=== PATIENT | male | born 1985 | race Caucasian/White ===

== ENCOUNTER 2017-06-17 11:32 | Inpatient (IN) | payer OTHER ==
[2017-06-17 13:58] VITALS: BMI 26.6
--- NOTE | 2017-06-17 16:41 | HP ---
COWS - Scale Resting Pulse: 1= [place] 81-100 Sweatin=Flushed/Facial Moisture Restless Observation: 0= Sits Still Pupil Size: 1= Pupils >than Normal Bone or Joint Aches: 2= Severe Diffuse Aches Runny Nose/ Eye Tearin= Runny Nose/Eyes GI Upset > 30mins: 2= Nausea/Diarrhea (diarrhea x 3) Tremor Observation: 2= Slight Tremor Visible Yawning Observation: 1= 1-2x During Session Anxiety or Irritability: 4=Extreme Anxiety Goose Flesh Skin: 0=Smooth Skin COWS Score: 17 CIWA Score - CIWA Score Nausea/Vomitin Muscle Tremors: 4-Moderate,w/Arms Extend Anxiety: 4-Mod. Anxious/Guarded Agitation: 4-Moderately Restless Paroxysmal Sweats: No Perspiration Orientation: 1-Uncertain about Date Tacttile Disturbances: 0-None Auditory Disturbances: 0-None Visual Disturbances: 0-None Headache: 2-Mild CIWA-Ar Total Score: 18 Admission ROS BHS - HPI Chief Complaint: Opioid and alcohol withdrawal symptoms Allergies/Adverse Reactions: Allergies Allergy/AdvReac Type Severity Reaction Status Date / Time No Known Allergies Allergy Verified 06/17/17 15:42 History of Present Illness: 32 years old male with a long history of alcohol and opioid dependence is seeking admission to detox. Patient has been in previous detox at [place], [place] and this is his first detox at [facility]. He has medical history of depression, nicotine dependence and ADHD. He denies suicide attempt and suicidal ideation at this time. Exam Limitations: No Limitations - Ebola screening Have you traveled outside of the country in the last 21 days: No Have you had contact with anyone from an Ebola affected area: No Have you been sick,other than usual withdrawal symptoms: No Do you have a fever: No - Review of Systems Constitutional: Chills, Loss of Appetite, Malaise, Night Sweats, Changes in sleep, Unexplained wgt Loss (30 lbs weight loss in 3 months) EENT: reports: Nose Congestion Respiratory: reports: No Symptoms reported Cardiac: reports: No Symptoms Reported : reports: No Symptoms Reported Musculoskeletal: reports: Joint Pain, Muscle Pain, Muscle Weakness Integumentary: reports: Flushing Neuro: reports: Tingling, Tremors Endocrine: reports: No Symptoms Reported Hematology: reports: No Symptoms Reported Psychiatric: reports: Agitated, Anxious, Depressed Other Systems: Reviewed and Negative Patient History - Patient Medical History Hx Anemia: No Hx Asthma: No Hx Chronic Obstructive Pulmonary Disease (COPD): No Hx Cardiac Disorders: No Hx Hypertension: No Hx Hypercholesterolemia: No Hx Pacemaker: No HX Cerebrovascular Accident: No Hx Seizures: No Hx Diabetes: No Hx Gastrointestinal Disorders: No Hx Liver Disease: No Hx Genitourinary Disorders: No Hx Sexually Transmitted Disorders: No Hx Renal Disease (ESRD): No Hx Thyroid Disease: No Hx Human Immunodeficiency Virus (HIV): No (Negative October 2015) Hx Hepatitis C: No Hx Depression: Yes (Not on medication) Hx Suicide Attempt: Yes Hx Bipolar Disorder: No Hx Schizophrenia: No Other Medical History: ADHD- Not on medication. was on Retalin - Patient Surgical History Past Surgical History: Yes Other Surgical History: hand surgery to repair tendon on left hand 2007 - PPD History Previous Implant?: Yes Documented Results: Negative w/o proof Implanted On Prior R Admission?: No PPD to be Administered?: Yes - Reproductive History Patient is a Female of Child Bearing Age (11 -55 yrs old): Yes (MALE) - Smoking Cessation Smoking history: Current every day smoker Aproximately how many cigarettes per day: 10 Hx Chewing Tobacco Use: No Initiated information on smoking cessation: Yes 'Breaking Loose' booklet given: 06/17/17 - Substance & Tx. History Hx Alcohol Use: Yes Substance Use Type: Alcohol, Cocaine, Heroin Hx Substance Use Treatment: Yes ([facility] ) - Substances Abused Heroin Route: Injection Frequency: Daily Amount used: 5-6 bags Age of first use: 25 Date of Last Use: 06/15/17 Alcohol Route: Oral Frequency: 3-6 times per week Amount used: 4 of 24 oz beer Age of first use: 17 Date of Last Use: 06/15/17 Marijuana/Hashish Route: Smoking Frequency: 1-3 times last 30 days Amount used: 1 joint Age of first use: 17 Date of Last Use: 05/27/17 Admission Physical Exam BHS - Vital Signs Vital Signs: Vital Signs - 24 hr 06/17/17 13:28 Temperature 96 F L Pulse Rate 93 H Respiratory 20 Rate Blood Pressure 147/77 - Physical General Appearance: Yes: Moderate Distress HEENTM: Yes: EOMI, Normal ENT Inspection, Normal Voice, NOEL Respiratory: Yes: Lungs Clear, Normal Breath Sounds, No Respiratory Distress Neck: Yes: Supple Breast: Yes: Breast Exam Deferred Cardiology: Yes: Regular Rhythm, Regular Rate, Tachycardia Abdominal: Yes: Normal Bowel Sounds, Soft Genitourinary: Yes: Within Normal Limits Back: Yes: Normal Inspection Musculoskeletal: Yes: Within Normal Limits Extremities: Yes: Tremors Neurological: Yes: Alert, Normal Mood/Affect Integumentary: Yes: Warm Lymphatic: Yes: Within Normal Limits - Diagnostic (1) Opioid dependence with withdrawal Current Visit: Yes Status: Chronic (2) Cocaine dependence, uncomplicated Current Visit: Yes Status: Chronic (3) Depression Current Visit: Yes Status: Chronic Qualifiers: Depression Type: unspecified Qualified Code(s): F32.9 - Major depressive disorder, single episode, unspecified (4) Nicotine dependence Current Visit: Yes Status: Chronic Cleared for Admission [facility] - Detox or Rehab [facility] Level of Care: Medically Managed Detox Regimen/Protocol: Methadone/Librium [facility] Breath Alcohol Content Breath Alcohol Content: 0 Urine Drug Screen - Results Drug Screen Negative: No Urine Drug Screen Results: OPI-Opiates
[2017-06-17] MEDS ORDERED: P-EPHED 60MG/TRIPROLIDI 2.5MG TABLET PO PRN (16:51)
[2017-06-17] MEDS ORDERED: MAG HYDROX/AL HYDROX/SIMETH 30 ML UNIT-DOSE CUP PO PRN (16:51)
[2017-06-17] MEDS ORDERED: MAGNESIUM CITRATE 300 ML BOTTLE PO PRN (16:51)
[2017-06-17] MEDS ORDERED: ACETAMINOPHEN 325 MG TABLET (FP) PO PRN (16:51)
[2017-06-17] MEDS ORDERED: MENTHOL/PHENOL 1 EACH UD MM PRN (16:51)
[2017-06-17] MEDS ORDERED: IBUPROFEN 400 MG TABLET (FP) PO PRN (16:51)
[2017-06-17] MEDS ORDERED: guaiFENesin/D-METHORPHAN HB 10 ML UNIT-DOSE CUPS PO PRN (16:51)
[2017-06-17] MEDS ORDERED: MAGNESIUM HYDROX 2400MG/30ML ORAL SUSPENSION 30 ML CUP PO PRN (16:51)
[2017-06-17] MEDS ORDERED: chlordiazePOXIDE HCL 25 MG CAPSULE PO PRN (16:51)
[2017-06-17] MEDS ORDERED: LOPERAMIDE HCL 2 MG CAPSULE PO PRN (16:51)
[2017-06-17] MEDS ORDERED: METHADONE HCL 10 MG TABLET (FOR DETOX USE ONLY) PO ONE ×2 (17:30→23:00)
[2017-06-17] MEDS: NICOTINE POLACRILEX 4 MG GUM BC PRN ×2 (18:41→22:41)
[2017-06-17 21:20] LABS: URINE APPEARANCE CLEAR; URINE BILIRUBIN NEGATIVE (NEGATIVE); URINE BLOOD NEGATIVE (NEGATIVE); URINE COLOR LTYELLOW; URINE GLUCOSE (UA) NEGATIVE (NEGATIVE); URINE KETONE NEGATIVE (NEGATIVE); URINE LEUK ESTERASE NEGATIVE (NEGATIVE); URINE NITRITE NEGATIVE (NEGATIVE); URINE PROTEIN NEGATIVE (NEGATIVE); URINE UROBILINOGEN NEGATIVE mg/dL (0.2-1.0)
[2017-06-17] MEDS: THIAMINE HCL 100 MG TABLET (FP) PO SCH (22:39)
[2017-06-17] MEDS: MELATONIN 5 MG TABLETS PO SCH (22:39)
[2017-06-17] MEDS: chlordiazePOXIDE HCL 25 MG CAPSULE PO SCH (22:39)
[2017-06-18] MEDS: chlordiazePOXIDE HCL 25 MG CAPSULE PO SCH ×4 (05:02→22:10)
[2017-06-18] MEDS: NICOTINE POLACRILEX 4 MG GUM BC PRN ×5 (05:03→20:34)
--- NOTE | 2017-06-18 08:23 | EKG ---
Test Reason : Blood Pressure : / mmHG Vent. Rate : 070 BPM Atrial Rate : 070 BPM P-R Int : 144 ms QRS Dur : 086 ms QT Int : 420 ms P-R-T Axes : 067 060 041 degrees QTc Int : 453 ms NORMAL SINUS RHYTHM NORMAL ECG NO PREVIOUS ECGS AVAILABLE Confirmed by ALONZO CHAUHAN, AMARILIS ([id number]) on 06/18/2017 8:22:49 AM Referred By: Confirmed By:AMARILIS ROSADO MD
[2017-06-18] MEDS ORDERED: METHADONE HCL 10 MG TABLET (FOR DETOX USE ONLY) PO SCH (10:00)
[2017-06-18 10:13] LABS: HEMATOCRIT 41.1 % (35.4-49); HEMOGLOBIN 13.7 GM/dL (11.7-16.9); MCH 29.6 pg (25.7-33.7); MCHC 33.3 g/dl (32.0-35.9); MEAN CELL VOLUME 88.9 fl (80-96); MEAN PLT VOLUME 7.9 fl (7.5-11.1); PLATELET COUNT 230 K/MM3 (134-434); RBC 4.63 M/mm3 (4.00-5.60); RDW 13.7 % (11.9-15.9); WHITE BLOOD COUNT 4.8 K/mm3 (4.0-10.0)
[2017-06-18 10:14] LABS: ALBUMIN 3.3 g/dl (3.4-5.0); ANION GAP 8 (8-16); BLOOD UREA NITROGEN 9 mg/dL (7-18); CALCIUM 8.9 mg/dL (8.5-10.1); CHLORIDE 106 mmol/L (98-107); CO2 28 mmol/L (21-32); GLUCOSE,RANDOM 86 mg/dL (74-106); POTASSIUM 4.5 mmol/L (3.5-5.1); SODIUM 142 mmol/L (136-145)
[2017-06-18 10:16] LABS: ALK PHOS 72 U/L (45-117); BILIRUBIN,TOTAL 0.2 mg/dL (0.2-1.0); CREATININE 0.7 mg/dL (0.7-1.3); SGOT/AST 10 U/L (15-37); SGPT/ALT 21 U/L (12-78); TOT PROT 6.8 g/dl (6.4-8.2)
[2017-06-18] MEDS: PRENATAL VITAMINS W/ FOLIC ACID TABLET (FP) PO SCH (10:28)
[2017-06-18] MEDS: NICOTINE 14 MG/24 HOURS TOPICAL PATCH TD SCH (10:29)
--- NOTE | 2017-06-18 10:32 | PN ---
S CIWA - CIWA Score Nausea/Vomitin-No Nausea/No Vomiting Muscle Tremors: 4-Moderate,w/Arms Extend Anxiety: 4-Mod. Anxious/Guarded Agitation: 4-Moderately Restless Paroxysmal Sweats: 1-Minimal Palms Moist Orientation: 0-Oriented Tacttile Disturbances: 0-None Auditory Disturbances: 0-None Visual Disturbances: 0-None Headache: 0-None Present CIWA-Ar Total Score: 13 BHS COWS - Scale Resting Pulse: 0= [place] 80 or Below Sweatin= Chills/Flushing Restless Observation: 3= Extraneous Movement Pupil Size: 0= Normal to Room Light Bone or Joint Aches: 1= Mild Discomfort Runny Nose/ Eye Tearin= Nasal Congestion GI Upset > 30mins: 0= None Tremor Observation of Outstretched Hands: 2= Slight Tremor Visible Yawning Observation: 2= >3x During Session Anxiety or Irritability: 2=Irritable/Anxious Goose Flesh Skin: 0=Smooth Skin COWS Score: 12 S Progress Note (SOAP) Subjective: ANXIETY,SWEATS,HOT/COLD FLASHES,FATIGUE. Objective: 06/18/17 10:32 Vital Signs Temperature 97.1 F L 06/18/17 09:37 Pulse Rate 77 06/18/17 09:37 Respiratory Rate 18 06/18/17 09:37 Blood Pressure 110/75 06/18/17 09:37 O2 Sat by Pulse Oximetry (%) Laboratory Last Values WBC 4.8 K/mm3 (4.0-10.0) 06/18/17 07:30 RBC 4.63 M/mm3 (4.00-5.60) 06/18/17 07:30 Hgb 13.7 GM/dL (11.7-16.9) 06/18/17 07:30 Hct 41.1 % (35.4-49) 06/18/17 07:30 MCV 88.9 fl (80-96) 06/18/17 07:30 MCH 29.6 pg (25.7-33.7) 06/18/17 07:30 MCHC 33.3 g/dl (32.0-35.9) 06/18/17 07:30 RDW 13.7 % (11.9-15.9) 06/18/17 07:30 Plt Count 230 K/MM3 (134-434) 06/18/17 07:30 MPV 7.9 fl (7.5-11.1) 06/18/17 07:30 Sodium 142 mmol/L (136-145) 06/18/17 07:30 Potassium 4.5 mmol/L (3.5-5.1) 06/18/17 07:30 Chloride 106 mmol/L (98-107) 06/18/17 07:30 Carbon Dioxide 28 mmol/L (21-32) 06/18/17 07:30 Anion Gap 8 (8-16) 06/18/17 07:30 BUN 9 mg/dL (7-18) 06/18/17 07:30 Creatinine 0.7 mg/dL (0.7-1.3) 06/18/17 07:30 Creat Clearance w eGFR > 60 (>60) 06/18/17 07:30 Random Glucose 86 mg/dL (74-106) 06/18/17 07:30 Calcium 8.9 mg/dL (8.5-10.1) 06/18/17 07:30 Total Bilirubin 0.2 mg/dL (0.2-1.0) 06/18/17 07:30 AST 10 U/L (15-37) L 06/18/17 07:30 ALT 21 U/L (12-78) 06/18/17 07:30 Alkaline Phosphatase 72 U/L (45-117) 06/18/17 07:30 Total Protein 6.8 g/dl (6.4-8.2) 06/18/17 07:30 Albumin 3.3 g/dl (3.4-5.0) L 06/18/17 07:30 Urine Color Ltyellow 06/17/17 20:00 Urine Appearance Clear 06/17/17 20:00 Urine pH 7.0 (5.0-8.0) 06/17/17 20:00 Ur Specific [place] 1.006 (1.001-1.035) 06/17/17 20:00 Urine Protein Negative (NEGATIVE) 06/17/17 20:00 Urine Glucose (UA) Negative (NEGATIVE) 06/17/17 20:00 Urine Ketones Negative (NEGATIVE) 06/17/17 20:00 Urine Blood Negative (NEGATIVE) 06/17/17 20:00 Urine Nitrite Negative (NEGATIVE) 06/17/17 20:00 Urine Bilirubin Negative (NEGATIVE) 06/17/17 20:00 Urine Urobilinogen Negative mg/dL (0.2-1.0) 06/17/17 20:00 Ur Leukocyte Esterase Negative (NEGATIVE) 06/17/17 20:00 Assessment: 06/18/17 10:32 WITHDRAWAL SX Plan: CONTINUE DETOX
--- NOTE | 2017-06-18 11:11 | CONSULT ---
[facility] Psychiatric Consult - Data Date of interview: 06/18/17 Admission source: [facility] Identifying data: Pt. is a 32 year old single male, without kids, unemployed, and living with parents. This is patient's first admission to [facility]. Pt. admitted to detox for alcohol, marijuana, and heroin dependence. Substance Abuse History: Following information confirmed with Mr. Harper: Smoking Cessation. Smoking history: Current every day smoker. Aproximately how many cigarettes per day: 10. Hx Chewing Tobacco Use: No. Initiated information on smoking cessation: Yes. 'Breaking Loose' booklet given: . - Substance & Tx. History. Hx Alcohol Use: Yes. Substance Use Type: Alcohol, Cocaine, Heroin. Hx Substance Use Treatment: Yes ([facility] ). - Substances Abused. Heroin. Route: Injection. Frequency: Daily. Amount used: 5-6 bags. Age of first use: 25. Date of Last Use: 06/15/17. Alcohol. Route: Oral. Frequency: 3-6 times per week. Amount used: 4 of 24 oz beer. Age of first use: 17. Date of Last Use: 06/15/17. Marijuana/ Hashish. Route: Smoking. Frequency: 1-3 times last 30 days. Amount used: 1 joint. Age of first use: 17. Date of Last Use: 05/27/17 Medical History: Denies. Psychiatric History: Patient's first encounter with a psychiatrist was approximately 20 years ago. Pt. was diagnosed with ADHD and prescribed Ritalin. Pt. reports discontinuing the medication after one year. As an adult patient reports outpatient care from [age] years of age. Pt. was seeing a psychiatrist at [place] [facility]. States he was not prescribed any medication and is not aware of his diagnosis. Pt. denies h/o psychiatric hospitalization and suicide attempt. Pt. currently denies suicidal and homicidal ideation. Physical/Sexual Abuse/Trauma History: Denies. Mental Status Exam - Mental Status Exam Alert and Oriented to: Time, Place, Person Cognitive Function: Good Patient Appearance: Well Groomed Mood: Euthymic Affect: Appropriate Patient Behavior: Appropriate, Cooperative Speech Pattern: Appropriate Voice Loudness: Normal Thought Process: Goal Oriented Thought Disorder: Not Present Hallucinations: Denies Suicidal Ideation: Denies Homicidal Ideation: Denies Insight/Judgement: Poor Sleep: Fair Appetite: Fair Muscle strength/Tone: Normal Gait/Station: Normal Psychiatric Findings - Problem List ([place] 1, 2,3) (1) Cocaine dependence, uncomplicated Current Visit: Yes Status: Acute (2) Nicotine dependence Current Visit: Yes Status: Acute Qualifiers: Nicotine product type: cigarettes Substance use status: in withdrawal Qualified Code(s): F17.213 - Nicotine dependence, cigarettes, with withdrawal (3) Opioid dependence with withdrawal Current Visit: Yes Status: Acute (4) Substance induced mood disorder Current Visit: Yes Status: Chronic - Initial Treatment Plan Initial Treatment Plan: Psychoeducation provided. Detoxification provided. Will order vistaril 50mg q4hr for anxiety. Benefits and side effects discussed. Verbal consent given. Will continue to monitor.
[2017-06-18] MEDS ORDERED: hydrOXYzine PAMOATE 50 MG CAPSULE (FP) PO PRN (11:34)
[2017-06-18] MEDS: THIAMINE HCL 100 MG TABLET (FP) PO SCH (22:10)
[2017-06-18] MEDS: MELATONIN 5 MG TABLETS PO SCH (22:10)
[2017-06-19] MEDS: chlordiazePOXIDE HCL 25 MG CAPSULE PO SCH ×3 (05:09→17:14)
[2017-06-19] MEDS: NICOTINE POLACRILEX 4 MG GUM BC PRN ×5 (05:11→22:19)
[2017-06-19] MEDS: PRENATAL VITAMINS W/ FOLIC ACID TABLET (FP) PO SCH (10:04)
[2017-06-19] MEDS: METHADONE HCL 5 MG TABLET (FOR DETOX USE ONLY) PO SCH (10:04)
[2017-06-19] MEDS: NICOTINE 14 MG/24 HOURS TOPICAL PATCH TD SCH (10:05)
--- NOTE | 2017-06-19 10:24 | PN ---
[facility] CIWA - CIWA Score Nausea/Vomitin-No Nausea/No Vomiting Muscle Tremors: 1-None Visible, but [place] Anxiety: 4-Mod. Anxious/Guarded Agitation: 3 Paroxysmal Sweats: 2 Orientation: 0-Oriented Tacttile Disturbances: 3-Moderate Itch/Numb/Burn Auditory Disturbances: 0-None Visual Disturbances: 0-None Headache: 0-None Present CIWA-Ar Total Score: 13 S COWS - Scale Resting Pulse: 0= [place] 80 or Below Sweatin= Chills/Flushing Restless Observation: 3= Extraneous Movement Pupil Size: 0= Normal to Room Light Bone or Joint Aches: 4=Acute Joint/Muscle Pain Runny Nose/ Eye Tearin= None GI Upset > 30mins: 0= None Tremor Observation of Outstretched Hands: 2= Slight Tremor Visible Yawning Observation: 1= 1-2x During Session Anxiety or Irritability: 1=Feels Anxious/Irritable Goose Flesh Skin: 0=Smooth Skin COWS Score: 12 [facility] Progress Note (SOAP) Subjective: ANXIETY,MUSCLE ACHE, TWITCHES, SWEATS. Objective: 06/19/17 10:39 Vital Signs Temperature 96.1 F L 06/19/17 10:16 Pulse Rate 80 06/19/17 10:16 Respiratory Rate 19 06/19/17 10:16 Blood Pressure 117/80 06/19/17 10:16 O2 Sat by Pulse Oximetry (%) Laboratory Last Values WBC 4.8 K/mm3 (4.0-10.0) 06/18/17 07:30 RBC 4.63 M/mm3 (4.00-5.60) 06/18/17 07:30 Hgb 13.7 GM/dL (11.7-16.9) 06/18/17 07:30 Hct 41.1 % (35.4-49) 06/18/17 07:30 MCV 88.9 fl (80-96) 06/18/17 07:30 MCH 29.6 pg (25.7-33.7) 06/18/17 07:30 MCHC 33.3 g/dl (32.0-35.9) 06/18/17 07:30 RDW 13.7 % (11.9-15.9) 06/18/17 07:30 Plt Count 230 K/MM3 (134-434) 06/18/17 07:30 MPV 7.9 fl (7.5-11.1) 06/18/17 07:30 Sodium 142 mmol/L (136-145) 06/18/17 07:30 Potassium 4.5 mmol/L (3.5-5.1) 06/18/17 07:30 Chloride 106 mmol/L (98-107) 06/18/17 07:30 Carbon Dioxide 28 mmol/L (21-32) 06/18/17 07:30 Anion Gap 8 (8-16) 06/18/17 07:30 BUN 9 mg/dL (7-18) 06/18/17 07:30 Creatinine 0.7 mg/dL (0.7-1.3) 06/18/17 07:30 Creat Clearance w eGFR > 60 (>60) 06/18/17 07:30 Random Glucose 86 mg/dL (74-106) 06/18/17 07:30 Calcium 8.9 mg/dL (8.5-10.1) 06/18/17 07:30 Total Bilirubin 0.2 mg/dL (0.2-1.0) 06/18/17 07:30 AST 10 U/L (15-37) L 06/18/17 07:30 ALT 21 U/L (12-78) 06/18/17 07:30 Alkaline Phosphatase 72 U/L (45-117) 06/18/17 07:30 Total Protein 6.8 g/dl (6.4-8.2) 06/18/17 07:30 Albumin 3.3 g/dl (3.4-5.0) L 06/18/17 07:30 Urine Color Ltyellow 06/17/17 20:00 Urine Appearance Clear 06/17/17 20:00 Urine pH 7.0 (5.0-8.0) 06/17/17 20:00 Ur Specific [place] 1.006 (1.001-1.035) 06/17/17 20:00 Urine Protein Negative (NEGATIVE) 06/17/17 20:00 Urine Glucose (UA) Negative (NEGATIVE) 06/17/17 20:00 Urine Ketones Negative (NEGATIVE) 06/17/17 20:00 Urine Blood Negative (NEGATIVE) 06/17/17 20:00 Urine Nitrite Negative (NEGATIVE) 06/17/17 20:00 Urine Bilirubin Negative (NEGATIVE) 06/17/17 20:00 Urine Urobilinogen Negative mg/dL (0.2-1.0) 06/17/17 20:00 Ur Leukocyte Esterase Negative (NEGATIVE) 06/17/17 20:00 RPR Titer Nonreactive (NONREACTIVE) 06/18/17 07:30 HIV 1&2 Antibody Screen Negative 06/18/17 07:30 HIV P24 Antigen Negative 06/18/17 07:30 Assessment: 06/19/17 10:40 WITHDRAWAL SX Plan: CONTINUE DETOX FLEXERIL 10 MG PO TID INCREASE PO FLUIDS
[2017-06-19] MEDS: CYCLOBENZAPRINE HCL 10 MG TABLET (FP) PO SCH ×2 (13:16→22:16)
[2017-06-19] MEDS: THIAMINE HCL 100 MG TABLET (FP) PO SCH (22:16)
[2017-06-19] MEDS: chlordiazePOXIDE 5 MG CAPSULE PO SCH (22:16)
[2017-06-19] MEDS: MELATONIN 5 MG TABLETS PO SCH (22:18)
[2017-06-20] MEDS: chlordiazePOXIDE 5 MG CAPSULE PO SCH ×3 (05:32→17:12)
[2017-06-20] MEDS: CYCLOBENZAPRINE HCL 10 MG TABLET (FP) PO SCH ×3 (05:32→22:09)
[2017-06-20] MEDS: PRENATAL VITAMINS W/ FOLIC ACID TABLET (FP) PO SCH (10:12)
[2017-06-20] MEDS: METHADONE HCL 5 MG TABLET (FOR DETOX USE ONLY) PO SCH (10:13)
[2017-06-20] MEDS: NICOTINE 14 MG/24 HOURS TOPICAL PATCH TD SCH (10:13)
[2017-06-20] MEDS: NICOTINE POLACRILEX 4 MG GUM BC PRN ×4 (10:14→22:09)
--- NOTE | 2017-06-20 15:19 | PN ---
BHS Progress Note (SOAP) Subjective: Body Aches, Sweating, Anxious. Objective: PATIENT A & O X 3, OBSERVED AMBULATING ON UNIT. NO ACUTE DISTRESS. 06/20/17 15:17 Vital Signs Temperature 96.5 F L 06/20/17 13:27 Pulse Rate 67 06/20/17 13:27 Respiratory Rate 18 06/20/17 13:27 Blood Pressure 95/59 06/20/17 13:27 O2 Sat by Pulse Oximetry (%) Laboratory Tests 06/17/17 06/18/17 06/18/17 20:00 07:30 07:30 WBC 4.8 RBC 4.63 Hgb 13.7 Hct 41.1 MCV 88.9 MCH 29.6 MCHC 33.3 RDW 13.7 Plt Count 230 MPV 7.9 Sodium Potassium Chloride Carbon Dioxide Anion Gap BUN Creatinine Creat Clearance w eGFR Random Glucose Calcium Total Bilirubin AST ALT Alkaline Phosphatase Total Protein Albumin Urine Color Ltyellow Urine Appearance Clear Urine pH 7.0 Ur Specific [place] 1.006 Urine Protein Negative Urine Glucose (UA) Negative Urine Ketones Negative Urine Blood Negative Urine Nitrite Negative Urine Bilirubin Negative Urine Urobilinogen Negative Ur Leukocyte Esterase Negative RPR Titer HIV 1&2 Antibody Screen Negative HIV P24 Antigen Negative 06/18/17 06/18/17 07:30 07:30 WBC RBC Hgb Hct MCV MCH MCHC RDW Plt Count MPV Sodium 142 Potassium 4.5 Chloride 106 Carbon Dioxide 28 Anion Gap 8 BUN 9 Creatinine 0.7 Creat Clearance w eGFR > 60 Random Glucose 86 Calcium 8.9 Total Bilirubin 0.2 AST 10 L ALT 21 Alkaline Phosphatase 72 Total Protein 6.8 Albumin 3.3 L Urine Color Urine Appearance Urine pH Ur Specific [place] Urine Protein Urine Glucose (UA) Urine Ketones Urine Blood Urine Nitrite Urine Bilirubin Urine Urobilinogen Ur Leukocyte Esterase RPR Titer Nonreactive HIV 1&2 Antibody Screen HIV P24 Antigen LABS NOTED. Assessment: 06/20/17 15:18 WITHDRAWAL SYMPTOMS. Plan: CONTINUE DETOX. INCREASE DAILY PO FLUID INTAKE.
[2017-06-20] MEDS: MELATONIN 5 MG TABLETS PO SCH (22:09)
[2017-06-20] MEDS: chlordiazePOXIDE HCL 10 MG CAPSULE PO SCH (22:09)
[2017-06-20] MEDS: THIAMINE HCL 100 MG TABLET (FP) PO SCH (22:09)
[2017-06-21] MEDS: CYCLOBENZAPRINE HCL 10 MG TABLET (FP) PO SCH ×3 (05:27→22:15)
[2017-06-21] MEDS: NICOTINE POLACRILEX 4 MG GUM BC PRN ×5 (05:27→22:16)
[2017-06-21] MEDS: chlordiazePOXIDE HCL 10 MG CAPSULE PO SCH ×3 (05:27→17:13)
[2017-06-21] MEDS ORDERED: METHADONE HCL 10 MG TABLET (FOR DETOX USE ONLY) PO SCH (10:00)
[2017-06-21] MEDS: NICOTINE 14 MG/24 HOURS TOPICAL PATCH TD SCH (10:08)
[2017-06-21] MEDS: PRENATAL VITAMINS W/ FOLIC ACID TABLET (FP) PO SCH (10:08)
[2017-06-21] MEDS ORDERED: diphenhydrAMINE HCL 25 MG CAPSULE (FP) PO PRN (11:19)
--- NOTE | 2017-06-21 11:36 | PN ---
BHS Progress Note (SOAP) Subjective: Sweating, twitching of body, anxious, bad dreams from taking melatonin (patient reports having bad dreams in the past as well from melatonin and wants it discontinued) Objective: 06/21/17 11:34 Last Vital Signs Temp Pulse Resp BP Pulse Ox 96.5 F L 61 18 107/66 06/21/17 09:08 06/21/17 09:08 06/21/17 09:08 06/21/17 09:08 Laboratory Tests 06/17/17 06/18/17 06/18/17 20:00 07:30 07:30 WBC 4.8 RBC 4.63 Hgb 13.7 Hct 41.1 MCV 88.9 MCH 29.6 MCHC 33.3 RDW 13.7 Plt Count 230 MPV 7.9 Sodium Potassium Chloride Carbon Dioxide Anion Gap BUN Creatinine Creat Clearance w eGFR Random Glucose Calcium Total Bilirubin AST ALT Alkaline Phosphatase Total Protein Albumin Urine Color Ltyellow Urine Appearance Clear Urine pH 7.0 Ur Specific [place] 1.006 Urine Protein Negative Urine Glucose (UA) Negative Urine Ketones Negative Urine Blood Negative Urine Nitrite Negative Urine Bilirubin Negative Urine Urobilinogen Negative Ur Leukocyte Esterase Negative RPR Titer HIV 1&2 Antibody Screen Negative HIV P24 Antigen Negative 06/18/17 06/18/17 07:30 07:30 WBC RBC Hgb Hct MCV MCH MCHC RDW Plt Count MPV Sodium 142 Potassium 4.5 Chloride 106 Carbon Dioxide 28 Anion Gap 8 BUN 9 Creatinine 0.7 Creat Clearance w eGFR > 60 Random Glucose 86 Calcium 8.9 Total Bilirubin 0.2 AST 10 L ALT 21 Alkaline Phosphatase 72 Total Protein 6.8 Albumin 3.3 L Urine Color Urine Appearance Urine pH Ur Specific [place] Urine Protein Urine Glucose (UA) Urine Ketones Urine Blood Urine Nitrite Urine Bilirubin Urine Urobilinogen Ur Leukocyte Esterase RPR Titer Nonreactive HIV 1&2 Antibody Screen HIV P24 Antigen Labs noted Assessment: 06/21/17 11:35 Withdrawal symptoms Plan: Continue detox Encouraged PO hydration (water) Discontinue melatonin due to bad dreams Start benadryl 50mg PO qhs prn insomnia
[2017-06-21] MEDS: THIAMINE HCL 100 MG TABLET (FP) PO SCH (22:15)
[2017-06-22] MEDS: CYCLOBENZAPRINE HCL 10 MG TABLET (FP) PO SCH ×2 (05:31→13:54)
[2017-06-22] MEDS: NICOTINE POLACRILEX 4 MG GUM BC PRN ×3 (05:33→12:16)
[2017-06-22] MEDS ORDERED: METHADONE HCL 5 MG TABLET (FOR DETOX USE ONLY) PO SCH (06:00)
[2017-06-22] MEDS: NICOTINE 14 MG/24 HOURS TOPICAL PATCH TD SCH (10:09)
[2017-06-22] MEDS: PRENATAL VITAMINS W/ FOLIC ACID TABLET (FP) PO SCH (10:09)
--- NOTE | 2017-06-22 13:14 | PN ---
S Progress Note (SOAP) Subjective: Patient denies any current Detox symptoms and reports that he feels well overall. Objective: PATIENT A & O X 3, OBSERVED AMBULATING ON UNIT. NO ACUTE DISTRESS. 06/22/17 13:10 Vital Signs Temperature 98.4 F 06/22/17 09:15 Pulse Rate 87 06/22/17 09:15 Respiratory Rate 18 06/22/17 09:15 Blood Pressure 108/79 06/22/17 09:15 O2 Sat by Pulse Oximetry (%) Laboratory Tests 06/17/17 06/18/17 06/18/17 20:00 07:30 07:30 WBC 4.8 RBC 4.63 Hgb 13.7 Hct 41.1 MCV 88.9 MCH 29.6 MCHC 33.3 RDW 13.7 Plt Count 230 MPV 7.9 Sodium Potassium Chloride Carbon Dioxide Anion Gap BUN Creatinine Creat Clearance w eGFR Random Glucose Calcium Total Bilirubin AST ALT Alkaline Phosphatase Total Protein Albumin Urine Color Ltyellow Urine Appearance Clear Urine pH 7.0 Ur Specific [place] 1.006 Urine Protein Negative Urine Glucose (UA) Negative Urine Ketones Negative Urine Blood Negative Urine Nitrite Negative Urine Bilirubin Negative Urine Urobilinogen Negative Ur Leukocyte Esterase Negative RPR Titer HIV 1&2 Antibody Screen Negative HIV P24 Antigen Negative 06/18/17 06/18/17 07:30 07:30 WBC RBC Hgb Hct MCV MCH MCHC RDW Plt Count MPV Sodium 142 Potassium 4.5 Chloride 106 Carbon Dioxide 28 Anion Gap 8 BUN 9 Creatinine 0.7 Creat Clearance w eGFR > 60 Random Glucose 86 Calcium 8.9 Total Bilirubin 0.2 AST 10 L ALT 21 Alkaline Phosphatase 72 Total Protein 6.8 Albumin 3.3 L Urine Color Urine Appearance Urine pH Ur Specific [place] Urine Protein Urine Glucose (UA) Urine Ketones Urine Blood Urine Nitrite Urine Bilirubin Urine Urobilinogen Ur Leukocyte Esterase RPR Titer Nonreactive HIV 1&2 Antibody Screen HIV P24 Antigen LABS NOTED. Assessment: 06/22/17 13:12 COMPLETION OF DETOX REGIMEN. Plan: PATIENT SCHEDULED FOR DISCHARGE FROM DETOX TODAY. PATIENT SCHEDULED TO GO TO [facility] ([place] FOR AFTERCARE.
--- NOTE | 2017-06-22 13:15 | DS ---
[facility] Detox Discharge Summary Admission Date: 06/17/17 Discharge Date: 06/22/17 - History Present History: Cocaine Dependence, Opioid Dependence Additional Comments: PATIENT GOING TO [facility] ([place] [place] FOR AFTERCARE. PATIENT WAS DISCHARGED FROM DETOX UNIT IN STABLE MEDICAL CONDITION. Pertinent Past History: ADHD, Depression, Nicotine Dependence. - Physical Exam Results Vital Signs: Vital Signs Temperature 98.4 F 06/22/17 09:15 Pulse Rate 87 06/22/17 09:15 Respiratory Rate 18 06/22/17 09:15 Blood Pressure 108/79 06/22/17 09:15 O2 Sat by Pulse Oximetry (%) Pertinent Admission Physical Exam Findings: WITHDRAWAL SYMPTOMS. Laboratory Tests 06/17/17 06/18/17 06/18/17 20:00 07:30 07:30 WBC 4.8 RBC 4.63 Hgb 13.7 Hct 41.1 MCV 88.9 MCH 29.6 MCHC 33.3 RDW 13.7 Plt Count 230 MPV 7.9 Sodium Potassium Chloride Carbon Dioxide Anion Gap BUN Creatinine Creat Clearance w eGFR Random Glucose Calcium Total Bilirubin AST ALT Alkaline Phosphatase Total Protein Albumin Urine Color Ltyellow Urine Appearance Clear Urine pH 7.0 Ur Specific [place] 1.006 Urine Protein Negative Urine Glucose (UA) Negative Urine Ketones Negative Urine Blood Negative Urine Nitrite Negative Urine Bilirubin Negative Urine Urobilinogen Negative Ur Leukocyte Esterase Negative RPR Titer HIV 1&2 Antibody Screen Negative HIV P24 Antigen Negative 06/18/17 06/18/17 07:30 07:30 WBC RBC Hgb Hct MCV MCH MCHC RDW Plt Count MPV Sodium 142 Potassium 4.5 Chloride 106 Carbon Dioxide 28 Anion Gap 8 BUN 9 Creatinine 0.7 Creat Clearance w eGFR > 60 Random Glucose 86 Calcium 8.9 Total Bilirubin 0.2 AST 10 L ALT 21 Alkaline Phosphatase 72 Total Protein 6.8 Albumin 3.3 L Urine Color Urine Appearance Urine pH Ur Specific [place] Urine Protein Urine Glucose (UA) Urine Ketones Urine Blood Urine Nitrite Urine Bilirubin Urine Urobilinogen Ur Leukocyte Esterase RPR Titer Nonreactive HIV 1&2 Antibody Screen HIV P24 Antigen LABS NOTED. - Treatment Hospital Course: Detox Protocol Followed, Detoxed Safely, Responded well, Discharged Condition Good, Rehab Referral Accepted Patient has Accepted a Re[facility] ([place] . - Medication Discharge Medications: Ambulatory Orders NK [No Known Home Medication] 06/17/17 - Diagnosis (1) Cocaine dependence, uncomplicated Current Visit: Yes Status: Chronic (2) Opioid dependence with withdrawal Current Visit: Yes Status: Acute (3) Depression Current Visit: Yes Status: Chronic Qualifiers: Depression Type: unspecified Qualified Code(s): F32.9 - Major depressive disorder, single episode, unspecified (4) Nicotine dependence Current Visit: Yes Status: Acute Qualifiers: Nicotine product type: cigarettes Substance use status: in withdrawal Qualified Code(s): F17.213 - Nicotine dependence, cigarettes, with withdrawal (5) Substance induced mood disorder Current Visit: Yes Status: Chronic - AMA Did Patient Leave Against Medical Advice: No
[2017-06-22 13:19] VITALS: PULSE 97
[2017-06-22 17:20] VITALS: BP 114/70; TEMP 96.6
[2017-06-22] MEDS ORDERED: NICOTINE POLACRILEX 2 MG GUM BUC PRN (17:56)
== END 2017-06-22 21:19 | disposition other institution (70) | DRG 773 ==
LOC: YASAS 11:32 → Y3N 16:54
PROVIDERS: ADMIT Internal Medicine; ATTEND Internal Medicine
PROC: HZ2ZZZZ Detoxification Services for Substance Abuse Treatment (ICD-10-PCS; principal; 2017-06-17)
DX: F11.23 Opioid dependence with withdrawal (principal); F14.20 Cocaine dependence, uncomplicated; F17.213 Nicotine dependence, cigarettes, with withdrawal; F32.9 Major depressive disorder, single episode, unspecified; F19.24 Other psychoactive substance dependence with psychoactive substance-induced mood disorder; F90.9 Attention-deficit hyperactivity disorder, unspecified type; R00.0 Tachycardia, unspecified
CPT/HCPCS: 36415; 80053; 81003; 85027; 86593; 87389; 93005; 93010

== ENCOUNTER 2017-06-22 21:39 | Inpatient (IN) | payer OTHER ==
--- NOTE | 2017-06-22 13:23 | HP ---
[facility] Rehab Assess/Revision - Admission History Admitted to Rehab from: [facility] Date of Admission to Rehab: 06/22/2017 - Vital signs Vital Signs: NOTED; STABLE. - Findings Detox History & Physical reviewed: Yes Concur with findings: Yes Comments/Additional Findings: PATIENT'S MEDICAL / MEDICATION HISTORY REVIEWED PRIOR TO DISCHARGE FROM DETOX UNIT. PATIENT WAS DISCHARGED FROM DETOX UNIT JOHN BE TAKEN TO REHAB UNIT IN STABLE MEDICAL CONDITION. Inpatient Rehab Admission - Initial Determination Are CD services needed?: Yes Free of communicable disease: Yes Not in need of hospitalization: Yes - Rehab Admission Criteria Previous failed treatment: Yes Comorbidities: Yes Patient is meeting Inpatient Rehab admission criteria:: Yes
[~2017-06-22 21:39] MED LIST: ACETAMINOPHEN 325 MG TABLET (FP) PO PRN; IBUPROFEN 400 MG TABLET (FP) PO PRN; LOPERAMIDE HCL 2 MG CAPSULE PO PRN; MAG HYDROX/AL HYDROX/SIMETH 30 ML UNIT-DOSE CUP PO PRN; MAGNESIUM CITRATE 300 ML BOTTLE PO PRN; MAGNESIUM HYDROX 2400MG/30ML ORAL SUSPENSION 30 ML CUP PO PRN; MENTHOL/PHENOL 1 EACH UD MM PRN; P-EPHED 60MG/TRIPROLIDI 2.5MG TABLET PO PRN; guaiFENesin/D-METHORPHAN HB 10 ML UNIT-DOSE CUPS PO PRN
[2017-06-22] MEDS ORDERED: MELATONIN 5 MG TABLETS PO PRN (22:00)
[2017-06-22] MEDS: THIAMINE HCL 100 MG TABLET (FP) PO SCH (23:01)
[2017-06-22] MEDS: NICOTINE POLACRILEX 4 MG GUM BUC PRN (23:02)
[2017-06-23] MEDS: NICOTINE POLACRILEX 4 MG GUM BUC PRN ×5 (06:13→20:12)
[2017-06-23] MEDS: PRENATAL VITAMINS W/ FOLIC ACID TABLET (FP) PO SCH (10:27)
[2017-06-23] MEDS: NICOTINE 14 MG/24 HOURS TOPICAL PATCH TD SCH (10:29)
[2017-06-23] MEDS ORDERED: hydrOXYzine PAMOATE 50 MG CAPSULE (FP) PO PRN (11:05)
--- NOTE | 2017-06-23 11:08 | HP ---
Psychiatrist Admission - Data Date of interview: 06/23/17 Admission source: 3N Identifying data: THis is the first 5N inpatient rehabilitation admission for this 32 year old single male, without kids, unemployed and living with parents. Medical History: Patient reports a good physical health and history of surgery to left hand to repair tendon in 2007, smokes 10 cigarettes a day. Psychiatric History: Patient reports as a child was diagnosed as AHHD and treated with Ritalin for short period of time, "I did not like it", states he was in special ed class, he reports no history of psychiatric treatment, denies history of suicidal attempts, states he twice overdosed with heroin accidently after competing rehabilitation treatment. Reports he feels very anxious and having urges to leave treatment, he also c/o insomnia. Physical/Sexual Abuse/Trauma History: When was asked about history of abuse, patient denies but got emotional and did not want to talk about it, he admitts having nightmares and flashbacks. Additional Comment: Reports has a court care on 07/24 due to "drug possesion". parents "functional alcoholics". Longest period of abstinence 10 months while in treatment. Vital Signs: Vital Signs - 24 hr 06/23/17 06/23/17 06/23/17 01:32 03:30 06:47 Temperature 98.3 F Pulse Rate 73 Respiratory 16 16 16 Rate Blood Pressure 119/74 Allergies/Adverse Reactions: Allergies Allergy/AdvReac Type Severity Reaction Status Date / Time No Known Allergies Allergy Verified 06/23/17 02:29 Date of last physical exam: 06/17/17 Concur with the findings of this exam: Yes - Substance Abuse/Tx History Hx Alcohol Use: Yes (daily drinking 4 of 24 oz of beer) Hx Substance Use: Yes Substance Use Type: Heroin (5-10 bags injecting daily ), Marijuana (daily 1 joint) Hx Substance Use Treatment: Yes ([facility]) Mental Status Exam - Mental Status Exam Alert and Oriented to: Time, Place, Person Cognitive Function: Good Patient Appearance: Well Groomed Mood: Sad, Anxious Affect: Appropriate, Mood Congruent Patient Behavior: Appropriate, Cooperative Speech Pattern: Clear, Appropriate Voice Loudness: Normal Thought Process: Intact, Goal Oriented Thought Disorder: Not Present Hallucinations: Denies Suicidal Ideation: Denies Homicidal Ideation: Denies Insight/Judgement: Fair Sleep: Poorly, Difficulty falling asleep Appetite: Fair Muscle strength/Tone: Normal Gait/Station: Normal Psychiatric Findings - Problem List ([place] 1, 2,3) (1) Alcohol dependence Current Visit: Yes Status: Acute (2) Cocaine dependence Current Visit: Yes Status: Acute (3) Cannabis dependence Current Visit: Yes Status: Acute (4) Substance-induced anxiety disorder Current Visit: Yes Status: Acute (5) Nicotine dependence Current Visit: No Status: Acute Qualifiers: Nicotine product type: cigarettes Substance use status: in withdrawal Qualified Code(s): F17.213 - Nicotine dependence, cigarettes, with withdrawal (6) Substance induced mood disorder Current Visit: No Status: Chronic - Initial Treatment Plan Initial Treatment Plan: Discussed indications and properties of Buspar for anxiety and Belsomra for indomnia, treatment recommendede, patient agreed with careplan, melanie start and continue monitor progress.l
[2017-06-23] MEDS: busPIRone HCL 5 MG TABLET PO SCH ×2 (14:21→21:35)
[2017-06-23] MEDS: THIAMINE HCL 100 MG TABLET (FP) PO SCH (21:35)
[2017-06-23] MEDS: SUVOREXANT 10 MG TABLET PO SCH (21:35)
[2017-06-24] MEDS: busPIRone HCL 5 MG TABLET PO SCH ×3 (06:26→21:36)
[2017-06-24] MEDS: NICOTINE POLACRILEX 4 MG GUM BUC PRN ×6 (06:27→22:45)
[2017-06-24] MEDS: PRENATAL VITAMINS W/ FOLIC ACID TABLET (FP) PO SCH (09:52)
[2017-06-24] MEDS: NICOTINE 14 MG/24 HOURS TOPICAL PATCH TD SCH (09:52)
[2017-06-24] MEDS: THIAMINE HCL 100 MG TABLET (FP) PO SCH (21:36)
[2017-06-24] MEDS: SUVOREXANT 10 MG TABLET PO SCH (21:36)
[2017-06-25] MEDS: busPIRone HCL 5 MG TABLET PO SCH ×3 (06:25→22:02)
[2017-06-25] MEDS: NICOTINE POLACRILEX 4 MG GUM BUC PRN ×5 (06:25→22:02)
[2017-06-25] MEDS: PRENATAL VITAMINS W/ FOLIC ACID TABLET (FP) PO SCH (10:09)
[2017-06-25] MEDS: NICOTINE 14 MG/24 HOURS TOPICAL PATCH TD SCH (10:09)
[2017-06-25] MEDS: SUVOREXANT 10 MG TABLET PO SCH (22:02)
[2017-06-25] MEDS: THIAMINE HCL 100 MG TABLET (FP) PO SCH (22:02)
[2017-06-26] MEDS: NICOTINE POLACRILEX 4 MG GUM BUC PRN ×5 (06:38→21:28)
[2017-06-26] MEDS: busPIRone HCL 5 MG TABLET PO SCH ×3 (06:38→21:28)
[2017-06-26] MEDS: PRENATAL VITAMINS W/ FOLIC ACID TABLET (FP) PO SCH (10:30)
[2017-06-26] MEDS: NICOTINE 14 MG/24 HOURS TOPICAL PATCH TD SCH (10:31)
[2017-06-26] MEDS: THIAMINE HCL 100 MG TABLET (FP) PO SCH (21:28)
[2017-06-26] MEDS: SUVOREXANT 10 MG TABLET PO SCH (21:28)
[2017-06-27] MEDS: NICOTINE POLACRILEX 4 MG GUM BUC PRN ×5 (06:25→22:04)
[2017-06-27] MEDS: busPIRone HCL 5 MG TABLET PO SCH ×3 (06:25→22:03)
[2017-06-27] MEDS: PRENATAL VITAMINS W/ FOLIC ACID TABLET (FP) PO SCH (10:46)
[2017-06-27] MEDS: NICOTINE 14 MG/24 HOURS TOPICAL PATCH TD SCH (10:46)
[2017-06-27] MEDS: SUVOREXANT 10 MG TABLET PO SCH (22:03)
[2017-06-27] MEDS: THIAMINE HCL 100 MG TABLET (FP) PO SCH (22:03)
[2017-06-28] MEDS: busPIRone HCL 5 MG TABLET PO SCH ×3 (06:31→21:26)
[2017-06-28] MEDS: NICOTINE POLACRILEX 4 MG GUM BUC PRN ×3 (06:31→19:34)
[2017-06-28] MEDS: PRENATAL VITAMINS W/ FOLIC ACID TABLET (FP) PO SCH (10:59)
[2017-06-28] MEDS: NICOTINE 14 MG/24 HOURS TOPICAL PATCH TD SCH (10:59)
[2017-06-28] MEDS: SUVOREXANT 10 MG TABLET PO SCH (21:26)
[2017-06-28] MEDS: THIAMINE HCL 100 MG TABLET (FP) PO SCH (21:26)
[2017-06-29] MEDS: busPIRone HCL 5 MG TABLET PO SCH ×2 (06:31→15:31)
[2017-06-29] MEDS: NICOTINE POLACRILEX 4 MG GUM BUC PRN ×2 (06:32→10:15)
[2017-06-29 09:22] VITALS: BP 125/73; PULSE 87; TEMP 97.4
[2017-06-29] MEDS: PRENATAL VITAMINS W/ FOLIC ACID TABLET (FP) PO SCH (10:14)
[2017-06-29] MEDS: NICOTINE 14 MG/24 HOURS TOPICAL PATCH TD SCH (10:15)
--- NOTE | 2017-06-29 15:15 | PN ---
Psychiatric Progress Note Vital Signs: Vital Signs Period Temp Pulse Resp BP Sys/Serrano Pulse Ox Last 24 Hr 97.4 F 87 18-18 125/73 Date of Session: 06/29/17 Chief Complaint:: discharge visit HPI: patient is a 32 year old with history of alcohol, cannabis, cocaine and nicitone dependence comorbid substance induced anxiety and mood disorder. Current Medications: Active Medications Generic Name Dose Route Start Last Admin Trade Name Freq PRN Reason Stop Dose Admin Acetaminophen 650 mg 06/22/17 13:20 Tylenol - PO Q4H PRN FEVER Al Hydroxide/Mg Hydroxide 30 ml 06/22/17 13:20 Mylanta Oral Suspension - PO Q6H PRN DYSPEPSIA Buspirone HCl 5 mg 06/23/17 14:00 06/29/17 06:31 Buspar - PO 5 mg TID VARUN Administration Eucalyptus/Menthol/Phenol/Sorbitol 1 each 06/22/17 13:20 Cepastat Lozenge - MM Q4H PRN SORE THROAT Guaifenesin 10 ml 06/22/17 13:20 Robitussin Dm - PO Q6H PRN COUGH Hydroxyzine Pamoate 50 mg 06/23/17 11:05 06/23/17 14:22 Vistaril - PO 50 mg Q4H PRN Administration ANXIETY Ibuprofen 400 mg 06/22/17 13:20 Motrin - PO Q6H PRN Pain Level 4-6 Loperamide HCl 4 mg 06/22/17 13:20 Imodium - PO Q6H PRN DIARRHEA Magnesium Citrate 300 ml 06/22/17 13:20 Citroma - PO Q48H PRN CONSTIPATION Magnesium Hydroxide 30 ml 06/22/17 13:20 Milk Of Magnesia - PO DAILY PRN CONSTIPATION Melatonin 5 mg 06/22/17 22:00 Melatonin PO HS PRN INSOMNIA Nicotine 14 mg 06/23/17 10:00 06/29/17 10:15 Nicoderm Patch - TD Not Given DAILY VARUN Nicotine Polacrilex 4 mg 06/22/17 13:20 06/29/17 10:15 Nicorette Gum - BUC 4 mg Q2H PRN Administration NICOTINE REPLACEMENT RX Multivit/Folic Acid/Iron 1 tab 06/23/17 10:00 06/29/17 10:14 Vitamins ([facility]) - PO 1 tab DAILY VARUN Administration Pseudoephedrine/Triprolidine 1 combo 06/22/17 13:20 Actifed - PO TID PRN NASAL CONGESTION Suvorexant 10 mg 06/23/17 22:00 06/28/17 21:26 Belsomra PO 06/30/17 21:59 10 mg HS VARUN Administration Thiamine HCl 100 mg 06/22/17 22:00 06/28/17 21:26 Vitamin B1 - PO 100 mg HS VARUN Administration Current Side Effect: No Lab tests ordered: No Lab tests reviewed: Yes Provider note:: patient decided to leave treatment AMA, met with the patient to explore reasons for not compliting treatment an dleaving ama, patient reports that "tired to be here", feels he locked inn and rather to continue his treatment in outpatient setting, patient was encouraged to stay and focus on his recovery , but adamant to leave treatment. Stable for ama d/c Total face to face time:: 15 Mental Status Exam - Mental Status Exam Alert and Oriented to: Time, Place, Person Cognitive Function: Grossly Intact Patient Appearance: Well Groomed Mood: Hopeful Affect: Appropriate, Mood Congruent Patient Behavior: Appropriate, Cooperative Speech Pattern: Clear, Appropriate Voice Loudness: Normal Thought Process: Intact, Goal Oriented Thought Disorder: Not Present Hallucinations: Denies Suicidal Ideation: Denies Homicidal Ideation: Denies Insight/Judgement: Fair Sleep: Fair Appetite: Good Muscle strength/Tone: Normal Gait/Station: Normal Psychiatric Treatment Plan - Problem List (5) Nicotine dependence Qualifiers: Nicotine product type: cigarettes Substance use status: in withdrawal Qualified Code(s): F17.213 - Nicotine dependence, cigarettes, with withdrawal
== END 2017-06-29 13:50 | disposition left against medical advice (07) | DRG 770 ==
LOC: YASAS 21:39 → Y5N 21:42 → Y3E 06-23 18:38 → Y5N 06-23 18:42
PROVIDERS: ADMIT Psychiatry & Neurology Psychiatry; ATTEND Psychiatry & Neurology Psychiatry
PROC: HZ42ZZZ Group Counseling for Substance Abuse Treatment, Cognitive-Behavioral (ICD-10-PCS; principal; 2017-06-22)
DX: F10.20 Alcohol dependence, uncomplicated (principal); F14.20 Cocaine dependence, uncomplicated; F12.20 Cannabis dependence, uncomplicated; F17.213 Nicotine dependence, cigarettes, with withdrawal; F19.280 Other psychoactive substance dependence with psychoactive substance-induced anxiety disorder; F19.24 Other psychoactive substance dependence with psychoactive substance-induced mood disorder